=== PATIENT | male | born 1985 | race Hispanic/Latino ===

== ENCOUNTER 2016-10-28 11:27 | Emergency (ER) | payer OTHER ==
[~2016-10-28] VITALS: Ht 175.3 cm; Wt 88.5 kg
== END 2016-10-28 12:53 | disposition home or self-care (01) ==
LOC: ED 11:27
DX: M19.032 Primary osteoarthritis, left wrist (principal)
CPT/HCPCS: 96372; 99282; J1885

== ENCOUNTER 2017-09-05 19:58 | Emergency (ER) | payer OTHER ==
[~2017-09-05] VITALS: Ht 175.3 cm; Wt 83.9 kg
[2017-09-05 20:04] VITALS: TEMP 98.6
[2017-09-05 21:43] VITALS: BP 122/86
== END 2017-09-05 21:44 | disposition home or self-care (01) ==
LOC: ED 19:58
DX: S30.0XXA Contusion of lower back and pelvis, initial encounter (principal); W10.9XXA Fall (on) (from) unspecified stairs and steps, initial encounter
CPT/HCPCS: 96372; 99283; J1885

== ENCOUNTER 2019-05-30 17:16 | Emergency (ER) | payer OTHER ==
[~2019-05-30] VITALS: Ht 175.3 cm; Wt 86.2 kg
[2019-05-30 17:34] VITALS: TEMP 97.9
[2019-05-30 18:53] VITALS: BP 170/72
== END 2019-05-30 18:56 | disposition home or self-care (01) ==
LOC: ED 17:16
PROC: 08C8XZZ Extirpation of Matter from Right Cornea, External Approach (ICD-10-PCS; principal; 2019-05-30)
DX: T15.01XA Foreign body in cornea, right eye, initial encounter (principal)
CPT/HCPCS: 99283

== ENCOUNTER 2019-06-02 23:26 | Emergency (ER) | payer OTHER ==
[~2019-06-02] VITALS: Ht 175.3 cm; Wt 95.3 kg
[2019-06-03 01:33] VITALS: BP 142/99; TEMP 98.5
== END 2019-06-03 01:33 | disposition home or self-care (01) ==
LOC: ED 23:26
DX: H57.11 Ocular pain, right eye (principal)
CPT/HCPCS: 96372; 99283; J1885